=== PATIENT | male | born 1945 | race Caucasian/White ===

== ENCOUNTER 2018-02-20 11:23 | Inpatient (IN) | payer MEDICARE, OTHER ==
[2018-02-20 12:01] LABS: #Basophils 0.1 thou/uL (0.0-0.2); #Eosinphils 0.1 thou/uL (0.0-0.7); #Lymphocytes 1.4 thou/uL (1.20-3.40); #Monocytes 0.5 thou/uL (0.11-0.59); #Neutrophils 4.3 thou/uL (1.40-6.50); %Basophils 1.1 % (0.0-1.0); %Eosinophils 2.2 % (0.0-10.0); %Lymphocytes 22.2 % (21.0-51.0); %Monocytes 7.3 % (0.0-10.0); %Neutrophils 67.3 % (42.0-75.0); Hemoglobin 14.2 g/dL (14.0-18.0); Mean Corpuscular HGB CONC 33.6 g/dL (32.0-36.0); Mean Corpuscular Hemoglobin 30.8 pg (27.0-31.0); Mean Corpuscular Volume 91.6 fL (78.0-98.0); Mean Platelet Volume 6.8 fL (7.4-10.4); Platelet Count 206 thou/uL (130-400); Red Blood Cell (RBC) Count 4.61 mill/uL (4.70-6.10); White Blood Cell (WBC) Count 6.4 thou/uL (4.8-10.8)
--- NOTE | 2018-02-20 12:23 | RAD ---
CHEST ONE VIEW: Comparison: 02-09-16 History: Pain. FINDINGS: Normal cardiac silhouette. Lungs and pleural spaces are clear. No pneumothorax or osseous abnormaliti es. IMPRESSION: No acute pulmonary process. POS: [facility]
[2018-02-20 12:28] LABS: CKMB 1.9 ng/mL (0-6.6); Troponin I Less than 0.010 ng/mL (< 0.028)
[2018-02-20 12:31] LABS: ALT (SGPT) 15 U/L (8-55); AST (SGOT) 12 U/L (5-34); Albumin 4.3 g/dL (3.4-4.8); Alkaline Phosphatase 62 U/L (40-150); Anion Gap 14 mmol/L (10-20); BUN (Urea Nitrogen) 18 mg/dL (8.4-25.7); Bilirubin, Total 0.3 mg/dL (0.2-1.2); CK (CPK) 43 U/L (30-200); Calc. Creatinine Clearance 0 mL/min (70-130); Calcium 9.7 mg/dL (7.8-10.44); Carbon Dioxide 23 mmol/L (23-31); Chloride 104 mmol/L (98-107); Estimated GFR-MDRD 63; Globulin 2.9 g/dL (2.4-3.5); Glucose 98 mg/dL (83-110); Potassium 4.1 mmol/L (3.5-5.1); Protein, Total 7.2 g/dL (5.8-8.1); Sodium 137 mmol/L (136-145)
[2018-02-20] MEDS ORDERED: Dextrose 50% Abboject 50 ML SYRINGE SLOW IVP PRN (14:31)
[2018-02-20] MEDS ORDERED: Dextrose 5% in Water 1,000 ML IV PRN (14:31)
[2018-02-20] MEDS ORDERED: HumaLOG 300 UNITS/3 ML VIAL SC PRN ×2 (14:31)
[2018-02-20 15:47] LABS: Troponin I Less than 0.010 ng/mL (< 0.028)
[2018-02-20] MEDS ORDERED: Acetaminophen 325 MG TAB PO PRN (16:00)
[2018-02-20] MEDS ORDERED: Milk Of Magnesia 30 ML UDCUP PO PRN (16:00)
[2018-02-20] MEDS ORDERED: Albuterol Sulfate 2.5 mg/3 ml Neb NEB PRN (16:03)
[2018-02-20] MEDS: Sodium Chloride 0.9% 1,000 ML IV SCH (16:56)
[2018-02-20] MEDS: Dronedarone HCl 400 MG TAB PO SCH (16:57)
[2018-02-20 18:22] LABS: Troponin I Less than 0.010 ng/mL (< 0.028)
--- NOTE | 2018-02-20 19:30 | HP ---
PRIMARY CARE PHYSICIAN: Omaira Alcazar. PRESENTING COMPLAINT: Generalized weakness/fatigue. HISTORY OF PRESENT ILLNESS: Mr. William Avila is a 72-year-old male with a history of atrial fi brillation, status post ablation 2 years ago. He also has a history of type 2 diabetes mellitus, CAD , hypertension, and chronic respiratory issues, who presented to the emergency room with complaints o f generalized weakness which started about 4 days ago. He reports he was driving from [place] that period and he felt fine while driving, but anytime he will get out of the cath refill and he w ould feel lightheaded and reported some palpitations. These symptoms continued and decided to come t o the emergency room today. He denies chest pain, shortness of breath, PND, orthopnea, lower extremi ty edema. He had an ablation done 2 years ago and had been fine on Eliquis, Multaq and diltiazem. A t the emergency room, he was found to have elevated blood pressure and he went in and out of atrial f ibrillation with heart rate going to the 130s. He was started on IV fluids and was admitted for furt her management. PAST MEDICAL HISTORY: As stated in the HPI. PAST SURGICAL HISTORY: Shoulder surgery and the previous mention ablation. FAMILY HISTORY: Reviewed and noncontributory. SOCIAL HISTORY: He drinks one drink daily, but denies smoking cigarettes or use of illicit drugs. ALLERGIES: He reports allergy to an antibiotic, which he does not remember the name right now. HOME MEDICATIONS: Pending confirmation. The patient is on atorvastatin 40 mg at bedtime, Symbicort 2 puffs inhaled b.i.d., Plavix 75 mg daily, finasteride 5 mg daily, hydrochlorothiazide 12.5 mg daily , metformin 500 mg twice a day, montelukast 10 mg in p.m., multivitamin, prednisone 10 mg daily, tams ulosin 0.4 mg daily, apixaban 5 mg b.i.d., diltiazem 60 mg b.i.d., dronedarone 400 mg b.i.d. REVIEW OF SYSTEMS: All systems reviewed were negative except as stated in HPI. PHYSICAL EXAMINATION: VITAL SIGNS: Heart rate fluctuating between the 80s and 120s, blood pressure 154/95. Other vital si gns within normal limits and the patient is saturating well on room air. GENERAL: Not in acute distress. He is sitting in bed and seems comfortable. HEENT: Normocephalic, atraumatic. Not pale, anicteric. Dry mucous membranes. PERRLA, EOMI. NECK: Supple, full range of movement. No JVD. CARDIOVASCULAR: Irregular rhythm, but regular rate, S1 and S2 with no murmurs, rubs or gallops. ABDOMEN: Soft, nontender, nondistended. Bowel sounds normoactive. No hepatosplenomegaly. RESPIRATORY: Vesicular breath sounds bilaterally. No wheezes, rales or rhonchi. MUSCULOSKELETAL: No edema. SKIN: Warm, dry, well-perfused. No rashes or lesions. NEUROLOGIC: Alert and oriented to time, place and person. No focal deficit. PSYCHIATRIC: Normal mood and affect. LABORATORY DATA: Serum chemistry within normal limits. Troponin was trended and negative. TSH was 2.0229. CBC was also largely unremarkable. Chest x-ray showed a normal cardiac silhouette with lung s and pleural spaces clear. No pneumothorax or osseous abnormalities and no cardiopulmonary process seen acutely. EKG showed normal sinus rhythm, despite multiple attempts to capture the atrial fibril lation seen on the monitor. ASSESSMENT: 1. Atrial fibrillation with rapid ventricular response. Lightheadedness, ?orthostatic hypotension. 2. Type 2 diabetes mellitus, controlled. 3. Coronary artery disease. 4. Hypertension. PLAN: 1. The patient is admitted for dizziness and atrial fibrillation with rapid ventricular response tabatha pite previous ablation therapy 2 years ago. He will be admitted to the telemetry floor. 2. IV diltiazem p.r.n. for tachycardia. If he does not respond to this, we will be forced to start him on a diltiazem drip. 3. Continue home medications - diltiazem, Multaq and Eliquis. 4. Get orthostatic vital signs. We will continue gentle hydration in the meantime. 5. The patient may require an echocardiogram while in hospital. 6. He has requested to see Dr. Daniel who did his ablation 2 years ago. We will trend troponin and monitor vital signs closely. We will defer decision on whether to do a repeat echocardiogram, last o ne which was done 2 years ago and was a ANAND (likely prior to ablation). 7. We will resume all the home medications once they have been confirmed. 8. Deep venous thrombosis prophylaxis, on Eliquis. 9. Code status: FULL CODE.
[2018-02-20] MEDS: Diltiazem HCl SR 60 mg Capsule PO SCH (20:15)
[2018-02-20] MEDS: Docusate 100 MG CAP PO SCH (20:16)
[2018-02-20] MEDS: Apixaban 5 MG TAB PO SCH (20:16)
[2018-02-20] MEDS: Montelukast Sodium 10 mg Tablet PO SCH (20:48)
[2018-02-20] MEDS: Atorvastatin Calcium 40 MG TAB PO SCH (20:48)
[2018-02-20] MEDS: Carvedilol 25 MG TAB PO SCH (20:48)
[2018-02-20] MEDS: Lisinopril 5 MG TAB PO SCH (20:48)
[2018-02-20 23:22] LABS: Hemoglobin 13.2 g/dL (14.0-18.0); Platelet Count 175 thou/uL (130-400)
[2018-02-20 23:42] LABS: Calc. Creatinine Clearance 94 mL/min (70-130); Estimated GFR-MDRD 64
[2018-02-20 23:51] LABS: #Basophils 0.1 thou/uL (0.0-0.2); #Eosinphils 0.2 thou/uL (0.0-0.7); #Monocytes 0.5 thou/uL (0.11-0.59); #Neutrophils 3.9 thou/uL (1.40-6.50); %Basophils 0.9 % (0.0-1.0); %Eosinophils 2.4 % (0.0-10.0); %Lymphocytes 30.6 % (21.0-51.0); %Neutrophils 59.2 % (42.0-75.0); Mean Corpuscular HGB CONC 34.4 g/dL (32.0-36.0); Mean Corpuscular Hemoglobin 31.5 pg (27.0-31.0); Mean Corpuscular Volume 91.7 fL (78.0-98.0); Mean Platelet Volume 6.6 fL (7.4-10.4); RBC Distribution Width 11.9 % (11.5-14.5); Red Blood Cell (RBC) Count 4.17 mill/uL (4.70-6.10); White Blood Cell (WBC) Count 6.5 thou/uL (4.8-10.8)
[2018-02-21 00:09] LABS: Chloride 104 mmol/L (98-107)
[2018-02-21 00:10] LABS: Calcium 9.1 mg/dL (7.8-10.44); Glucose 146 mg/dL (83-110); Potassium 3.8 mmol/L (3.5-5.1); Sodium 139 mmol/L (136-145)
[2018-02-21 00:12] LABS: Anion Gap 15 mmol/L (10-20); Carbon Dioxide 24 mmol/L (23-31)
[2018-02-21 00:15] LABS: BUN (Urea Nitrogen) 17 mg/dL (8.4-25.7)
--- NOTE | 2018-02-21 06:10 | CON ---
DATE OF CONSULTATION: 02/21/2018 PRIMARY SUPERVISOR [employer]ODUCTS: Dr. Daniel HISTORY OF PRESENT ILLNESS: Mr. Avila is a very pleasant 72-year-old gentleman. He has history of paroxysmal atrial fibrillation and underwent successful catheter ablation for the fibrillation ab out 2 years ago in [place]. He was admitted to the hospital on this occasion with palpitations and ta chycardia and what looks like probably an atrial flutter or accelerated junctional rhythm was present at that time. He is currently asymptomatic and feeling well. He had no chest pain or pressure, jus t felt his heart racing. MEDICATIONS AT HOME: 1. Hydrochlorothiazide. 2. Atorvastatin. 3. Clopidogrel. 4. Aspirin. 5. He has been started on Eliquis here. 6. Metformin. ALLERGIES: None known. SOCIAL HISTORY: No alcohol or tobacco. PAST MEDICAL HISTORY: Positive for coronary artery disease as well as atrial arrhythmias. PHYSICAL EXAMINATION: GENERAL: This is a pleasant elderly gentleman in no distress. VITAL SIGNS: Blood pressure 150/80, pulse is now 90. Now it is regular with sinus. LUNGS: Clear. CARDIAC: Normal S1, normal S2. ABDOMEN: Soft, nontender. EXTREMITIES: Warm, dry, no clubbing or cyanosis. There is no edema. SKIN: Warm and dry. LABORATORY AND X-RAY FINDINGS: EKG reveals what looked like an atrial tachycardia earlier, also, queenie e sinus rhythm. ASSESSMENT: 1. Paroxysmal atrial arrhythmia. 2. Previous atrial fibrillation ablation. PLAN: He is on dronedarone as well as diltiazem, carvedilol as well as apixaban. Dr. Daniel will c heck with the patient tomorrow.
[2018-02-21] MEDS: Dronedarone HCl 400 MG TAB PO SCH ×2 (08:04→17:12)
[2018-02-21] MEDS: Diltiazem HCl SR 60 mg Capsule PO SCH ×2 (08:04→20:27)
[2018-02-21] MEDS: metFORMIN 500 MG TAB PO SCH ×2 (08:05→17:12)
[2018-02-21] MEDS: Finasteride 5 MG TAB PO SCH (08:14)
[2018-02-21] MEDS: Carvedilol 25 MG TAB PO SCH ×2 (08:14→20:27)
[2018-02-21] MEDS: Lisinopril 5 MG TAB PO SCH ×2 (08:15→20:27)
[2018-02-21] MEDS: Clopidogrel Bisulfate 75 MG TAB PO SCH (08:15)
[2018-02-21] MEDS: Docusate 100 MG CAP PO SCH ×2 (08:19→20:28)
[2018-02-21] MEDS: Apixaban 5 MG TAB PO SCH ×2 (08:19→20:28)
--- NOTE | 2018-02-21 11:01 | PDOC.PN ---
- Subjective Encounter Start Date: 02/21/18 Encounter Start Time: 11:01 72 M with a h/o A fib s/p ablation presenting with paroxysmal atrial arrhythmias. No acute events on tele and no complaints. today. - Objective MAR Reviewed: Yes Vital Signs & Weight: Vital Signs (12 hours) Temp Pulse Resp BP BP Pulse Ox 02/21/18 08:48 97.9 F 78 18 02/21/18 08:23 97.9 F 78 18 123/71 94 L 02/21/18 04:00 98.0 F 71 20 111/66 94 L 02/20/18 23:47 73 20 124/75 Weight Weight 240 lb 8 oz I&O: 02/20/18 02/21/18 02/22/18 06:59 06:59 06:59 Intake Total 680 Output Total 1425 Balance -745 Result Diagrams: 02/20/18 23:05 02/20/18 23:05 Additional Labs: Accuchecks 02/21/18 02/20/18 02/20/18 06:14 20:25 17:03 POC Glucose 128 H 137 H 117 H Phys Exam - Physical Examination Constitutional: NAD HEENT: moist MMs, sclera anicteric Neck: supple, full ROM Respiratory: no wheezing, no rales, no rhonchi, clear to auscultation bilateral Cardiovascular: RRR, no significant murmur, no rub Gastrointestinal: soft, non-tender, no distention, positive bowel sounds Musculoskeletal: no edema, pulses present Neurological: non-focal, moves all 4 limbs Psychiatric: normal affect, A&O x 3 Skin: no rash, normal turgor Dx/Plan (1) Paroxysmal atrial fibrillation Code(s): I48.0 - PAROXYSMAL ATRIAL FIBRILLATION Status: Chronic Comment: Rate control and in sinus rhythm for now. Cardiology on board. Continue current medications. (2) HTN (hypertension) Code(s): I10 - ESSENTIAL (PRIMARY) HYPERTENSION Status: Chronic Qualifiers: Hypertension type: essential hypertension Qualified Code(s): I10 - Essential (primary) hypertension (3) DM2 (diabetes mellitus, type 2) Status: Acute Qualifiers: Diabetes mellitus correction insulin use: without oil heaterman use Diabetes mellitus complication status: without complication Qualified Code(s): E11.9 - Type 2 diabetes mellitus without complications Comment: Well controlled. Continue metformin, SSI. (4) CAD (coronary artery disease) Code(s): I25.10 - ATHSCL HEART DISEASE OF [place] CORONARY ARTERY W/O ANG PCTRS Status: Chronic Qualifiers: Coronary Disease-Associated Artery/Lesion type: unspecified vessel or lesion type [place] vs. transplanted heart: [place] heart Associated angina: without angina Qualified Code(s): I25.10 - Atherosclerotic heart disease of [place] coronary artery without angina pectoris Comment: Stable. Chest pain free. (5) Dizziness Code(s): R42 - DIZZINESS AND GIDDINESS Status: Resolved - Plan cont current plan of care, plan discussed w/ family, out of bed/ambulate Dizziness resolved. ? orthostatic vs due to A fib. Patient reports not tolerating Eliquis- GI upset. Dr Daniel to see today. Will F/u Cardiology recs Continue current therapy. Review of Systems - Medications/Allergies Allergies/Adverse Reactions: Allergies Allergy/AdvReac Type Severity Reaction Status Date / Time No Known Allergies Allergy Verified 02/20/18 16:19 Medications: Current Medications Acetaminophen (Tylenol) 650 mg PO Q4H PRN PRN Reason: Headache/Fever or Pain Albuterol Sulfate (Ventolin) 2.5 mg NEB [id number] PRN PRN Reason: Wheezing Apixaban (Eliquis) 5 mg PO BID [facility] Last Admin: 02/21/18 08:19 Dose: Not Given Arformoterol Tartrate (Brovana) 15 mcg NEB BID-RT [facility] Aspirin (Aspirin Chewable) 81 mg PO DAILY [facility] Last Admin: 02/21/18 08:55 Dose: 81 mg Atorvastatin Calcium (Lipitor) 40 mg PO HS [facility] Last Admin: 02/20/18 20:48 Dose: Not Given Carvedilol (Coreg) 12.5 mg PO BID [facility] Last Admin: 02/21/18 08:14 Dose: 12.5 mg Clopidogrel Bisulfate (Plavix) 75 mg PO DAILY [facility] Last Admin: 02/21/18 08:15 Dose: 75 mg Dextrose/Water (Dextrose 50%) 25 gm SLOW IVP PRN PRN PRN Reason: Hypoglycemia Diltiazem HCl (Cardizem) 10 mg SLOW IVP Q3H PRN PRN Reason: To Control Heart Rate Diltiazem HCl (Cardizem Sr) 60 mg PO BID [facility] Last Admin: 02/21/18 08:04 Dose: 60 mg Docusate Sodium (Colace) 100 mg PO BID [facility] Last Admin: 02/21/18 08:19 Dose: Not Given [facility] Last Admin: 02/21/18 08:04 Dose: 400 mg Finasteride (Proscar) 5 mg PO DAILY [facility] Last Admin: 02/21/18 08:14 Dose: 5 mg Glucagon (Glucagon) 1 mg IM PRN PRN PRN Reason: Hypoglycemia Dextrose/Water (D5w) 1,000 mls @ 0 mls/hr IV .Q0M PRN; As Directed PRN Reason: Hypoglycemia Sodium Chloride (Normal Saline 0.9%) 1,000 mls @ 50 mls/hr IV .Q20H [facility] Last Admin: 02/20/18 16:56 Dose: 1,000 mls Insulin Human Lispro (Humalog) 0 units SC .MILD SLIDING SCALE PRN PRN Reason: Mild Correctional Scale Insulin Human Lispro (Humalog) 0 units SC .BEDTIME SLIDING SC PRN PRN Reason: Bedtime Correctional Scale Lisinopril (Zestril) 5 mg PO BID [facility] Last Admin: 02/21/18 08:15 Dose: 5 mg Magnesium Hydroxide (Milk Of Magnesium) 30 ml PO DAILYPRN PRN PRN Reason: Constipation Metformin [facility] ([facility]) [facility] Last Admin: 02/21/18 08:05 Dose: 1,000 mg Montelukast Sodium (Singulair) 10 mg PO QPM [facility] Last Admin: 02/20/18 20:48 Dose: Not Given Sodium Chloride (Flush - Normal Saline) 10 ml IVF Q12HR [facility] Last Admin: 02/21/18 08:56 Dose: 10 ml Sodium Chloride (Flush - Normal Saline) 10 ml IVF PRN PRN PRN Reason: Saline Flush Tamsulosin HCl (Flomax) 0.4 mg PO [facility]
[2018-02-21] MEDS: Sodium Chloride 0.9% 1,000 ML IV SCH (12:16)
[2018-02-21 14:42] VITALS: BMI 29.2
--- NOTE | 2018-02-21 16:51 | PDOC.CTH ---
Cardiology Progress Note - Subjective He is doing well. He still has paroxysms of SVT. He feels better overall. - Objective Vital Signs Temp Pulse Resp BP Pulse Ox 02/21/18 15:30 98.7 F 74 16 115/67 96 02/21/18 11:33 97.8 F 71 18 116/70 96 02/21/18 08:48 97.9 F 78 18 02/21/18 08:23 97.9 F 78 18 123/71 94 L Admit Weight 240 lb Weight 240 lb 8 oz 02/20/18 02/21/18 02/22/18 06:59 06:59 06:59 Intake Total 680 Output Total 1425 Balance -745 - Physical Examination General/Neuro: alert & oriented x3, NAD Neck: no JVD present Lungs: CTA, unlabored respirations Heart: RRR Abdomen: NT/ND Extremities: other: (no edema.) - Telemetry Telemetry Rhythm: NSR - Labs Result Diagrams: 02/20/18 23:05 02/20/18 23:05 Troponin/CKMB CK-MB (CK-2) 1.9 ng/mL (0-6.6) 02/20/18 11:49 Troponin I Less than 0.010 ng/mL (< 0.028) 02/20/18 17:08 - Assessment/Plan 1. Atrial tach 2. Hx of afib s/p ablation 3. CAD, stable s/sp PCI to IR in 2014. PLAN: - Will consult EP as he may be a candidate for an ablation, This is either Aflutter with 2-1 block, atypical versus atrial tach. - If aflutter then full anticoagulation is recommended. If atrial tach which is favoured then no anticoagulation needed. - Awaiting EP recs.
[2018-02-21] MEDS: Arformoterol 15 MCG/2 ML NEB NEB SCH (18:33)
[2018-02-21] MEDS: Montelukast Sodium 10 mg Tablet PO SCH (20:25)
[2018-02-21] MEDS: Atorvastatin Calcium 40 MG TAB PO SCH (20:27)
[2018-02-21] MEDS ORDERED: Tamsulosin HCl 0.4 MG CAP PO SCH (21:00)
--- NOTE | 2018-02-22 00:14 | CON ---
DATE OF CONSULTATION: 02/21/2018 ELECTROPHYSIOLOGY CONSULTATION REFERRING PHYSICIAN: Adelso Daniel MD REASON FOR CONSULTATION: Atrial arrhythmia with RVR. HISTORY OF PRESENT ILLNESS: Mr. Avila is a pleasant 72-year-old man with a history of paroxysma l atrial arrhythmias. He has undergone 2 prior ablations, most recently in [place] in 2015. Since th at time, his arrhythmias have been well controlled with just occasional palpitations. He was recentl y traveling to [place] for a class reunion when he began to experience some vague symptoms of fatigu e and low energy with associated dizziness. While he was driving home, he began to attributed to pos sible recurrence of arrhythmias and once he arrived home, he decided it was time to go to the emergen cy room. He did not have any syncopal or near syncopal episodes, but he did have significant unstead iness, where he felt he needed to support himself while he was trying to walk. He also endorses sign ificant fatigue with these episodes that are fairly intermittent. He presented to the hospital in at [facility] and since that time, has been paroxysmal with what looks like a focal atrial tachyca rdia with 1:1 conduction. REVIEW OF SYSTEMS: Twelve-point review of systems was conducted, and is negative except that listed above in the HPI. PAST MEDICAL HISTORY: 1. Wide-complex tachycardia, status post ablation by Dr. Hammonds on 07/22/2015, at which point, he was found to have an atrial tachycardia. 2. Atrial tachycardia, status post ablation by Dr. Joe on 10/27/2015 with only occasional palpi tations since that time. 3. Inclusion of a LINQ loop recorder placement in 2014. 4. Intolerance to Eliquis related to undesirable side effects, but no significant bleeding issues. 5. Diabetes. 6. Hypertension. 7. CHADS-VASc score of 3 on the basis of age, hypertension, and diabetes. FAMILY HISTORY: Negative for sudden cardiac or early-onset coronary artery disease. SOCIAL HISTORY: Negative for tobacco habituation, but positive for occasional alcohol use. Negative for illicit drug use. ALLERGIES: No known allergies. HOME MEDICATIONS: Hydrochlorothiazide, atorvastatin, clopidogrel, aspirin, metformin. PHYSICAL EXAMINATION: VITAL SIGNS: Most recent vital signs 98.7 degrees Fahrenheit, pulse 74, respirations 16, oxygen satu ration 96% on room air, blood pressure 115/67. GENERAL: This is a well-appearing, well-groomed male in no apparent distress. He is alert and orien delmi. Speech is clear. His affect is appropriate. NECK: Supple without jugular venous distention. His thyroid is nonpalpable. LUNGS: Clear to auscultation bilaterally without wheezes, crackles, or rhonchi. His respirations ar e even and unlabored with good bilateral excursion. HEART: His heart rate is currently irregularly irregular without significant murmur, rub, or gallop. His PMI is nondisplaced. EXTREMITIES: Warm and dry to touch without clubbing, cyanosis, or edema. ABDOMEN: Soft and nontender without palpable masses and hepatojugular reflex is negative. There are positive bowel tones noted throughout. NEUROLOGIC: Grossly intact and nonfocal and his gait is stable. DATABASE: Review of EKGs and telemetry strips were all personally reviewed revealing paroxysmal epis odes of 1:1 atrial tachycardia and occasionally organizing in a 2:1 flutter. Otherwise, maintaining sinus rhythm. LABORATORY DATA: Hematology was reviewed and is unremarkable except some mild anemia. Chemistry: P otassium 3.8, creatinine 1.13. TSH was 2.02 on the . Chest x-ray on 02/20/2018, no acute pulmon josé processes. IMPRESSION: 1. Paroxysmal atrial tachycardia with decreased burden since initiation of Multaq. 2. History of atrial fibrillation/atrial tachycardia, status post ablation in 10/2015, initially fou nd during an ablation for a wide-complex tachycardia with Dr. Hammonds. 3. Near-syncope. 4. LINQ loop recorder in situ. 5. Diabetes and hypertension. 6. CHADS-VASc score of 3 on the basis of hypertension, diabetes, and advancing age. PLAN: 1. Continue Multaq 400 mg p.o. b.i.d. for arrhythmia management, which at this point seems to be dec reasing the number of episodes that he is having. 2. Consider Xarelto for oral anticoagulation. We discussed the importance of stroke prophylaxis in the setting of paroxysmal atrial arrhythmias. We understand he has not tolerated Eliquis in the past due to side effects, but has not had any history of potential bleeding issues while on oral anticoag ulation. He does not feel that he has ever tried any alternative agents and Xarelto may be a possibi lity for him. 3. We will schedule for an outpatient ablation tentatively at this point. He is eager to be rid of these episodes; however, if Multaq is effectively suppressing his arrhythmias, then he may opt for po stponing ablation until the time where his arrhythmias are refractory to the medical management. Thank you for allowing us to participate in the care of this patient. This report is dictated as scribe for Dr. Chato Burk.
[2018-02-22] MEDS: Arformoterol 15 MCG/2 ML NEB NEB SCH (07:15)
[2018-02-22] MEDS: Lisinopril 5 MG TAB PO SCH (07:51)
[2018-02-22] MEDS: Dronedarone HCl 400 MG TAB PO SCH (07:51)
[2018-02-22] MEDS: metFORMIN 500 MG TAB PO SCH (07:51)
[2018-02-22] MEDS: Clopidogrel Bisulfate 75 MG TAB PO SCH (07:52)
[2018-02-22] MEDS: Docusate 100 MG CAP PO SCH (07:52)
[2018-02-22] MEDS: Diltiazem HCl SR 60 mg Capsule PO SCH (07:52)
[2018-02-22] MEDS: Finasteride 5 MG TAB PO SCH (07:52)
[2018-02-22] MEDS: Carvedilol 25 MG TAB PO SCH (07:52)
[2018-02-22] MEDS: Apixaban 5 MG TAB PO SCH (07:53)
[2018-02-22] MEDS ORDERED: Rivaroxaban 15 MG TAB PO SCH (09:00)
[2018-02-22 11:44] VITALS: BP 129/83; TEMP 98
--- NOTE | 2018-02-22 12:54 | PDOC.PN ---
- Subjective Encounter Start Date: 02/22/18 Encounter Start Time: 12:53 72 M with a h/o A fib s/p ablation presenting with paroxysmal atrial arrhythmias. No acute events on tele and no complaints. Reviewed by cardiology and EP. Will likely schedule ablation on outpatient basis. Cardiology recommended changing to Xarelto since patient not tolerating Eliquis. No acute events overnight. - Objective MAR Reviewed: Yes Vital Signs & Weight: Vital Signs (12 hours) Temp Pulse Resp BP BP Pulse Ox 02/22/18 11:43 98.0 F 108 H 18 129/83 95 02/22/18 07:56 97.5 F L 108 H 18 128/75 95 02/22/18 07:51 108 H 128/75 02/22/18 07:15 71 16 95 02/22/18 04:00 97.7 F 82 20 100/55 L 96 Weight Admit Weight 240 lb Weight 240 lb 8 oz I&O: 02/21/18 02/22/18 02/23/18 06:59 06:59 06:59 Intake Total 680 1434 Output Total 1425 1500 Balance -745 -66 Result Diagrams: 02/20/18 23:05 02/20/18 23:05 Additional Labs: Accuchecks 02/22/18 02/22/18 02/21/18 10:35 05:39 20:53 POC Glucose 118 H 143 H 106 02/21/18 02/21/18 16:45 10:35 POC Glucose 132 H 151 H Phys Exam - Physical Examination Constitutional: NAD HEENT: moist MMs, sclera anicteric Neck: supple, full ROM Respiratory: no wheezing, no rales, no rhonchi, clear to auscultation bilateral Cardiovascular: RRR, no significant murmur, no rub Gastrointestinal: soft, non-tender, no distention, positive bowel sounds Musculoskeletal: no edema, pulses present Neurological: non-focal, moves all 4 limbs Psychiatric: normal affect, A&O x 3 Skin: no rash, normal turgor Dx/Plan (1) Paroxysmal atrial fibrillation Code(s): I48.0 - PAROXYSMAL ATRIAL FIBRILLATION Status: Chronic Comment: Rate controlled. Cardiology on board. (2) HTN (hypertension) Code(s): I10 - ESSENTIAL (PRIMARY) HYPERTENSION Status: Chronic Qualifiers: Hypertension type: essential hypertension Qualified Code(s): I10 - Essential (primary) hypertension Comment: Fairly well controlled. (3) DM2 (diabetes mellitus, type 2) Status: Chronic Qualifiers: Diabetes mellitus fpc insulin use: without fpc use Diabetes mellitus complication status: without complication Qualified Code(s): E11.9 - Type 2 diabetes mellitus without complications Comment: Well controlled. Continue metformin, SSI. (4) CAD (coronary artery disease) Code(s): I25.10 - ATHSCL HEART DISEASE OF [place] CORONARY ARTERY W/O ANG PCTRS Status: Chronic Qualifiers: Coronary Disease-Associated Artery/Lesion type: unspecified vessel or lesion type [place] vs. transplanted heart: [place] heart Associated angina: without angina Qualified Code(s): I25.10 - Atherosclerotic heart disease of [place] coronary artery without angina pectoris Comment: Stable. Chest pain free. - Plan cont current plan of care, out of bed/ambulate * . Review of Systems - Medications/Allergies Allergies/Adverse Reactions: Allergies Allergy/AdvReac Type Severity Reaction Status Date / Time No Known Allergies Allergy Verified 02/20/18 16:19 Medications: Current Medications Acetaminophen (Tylenol) 650 mg PO Q4H PRN PRN Reason: Headache/Fever or Pain Albuterol Sulfate (Ventolin) 2.5 mg NEB [id number] PRN PRN Reason: Wheezing Arformoterol Tartrate (Brovana) 15 mcg NEB BID-RT [facility] Last Admin: 02/22/18 07:15 Dose: 15 mcg Aspirin (Aspirin Chewable) 81 mg PO DAILY [facility] Last Admin: 02/22/18 07:52 Dose: 81 mg Atorvastatin Calcium (Lipitor) 40 mg PO HS [facility] Last Admin: 02/21/18 20:27 Dose: 40 mg Carvedilol (Coreg) 12.5 mg PO BID [facility] Last Admin: 02/22/18 07:52 Dose: 12.5 mg Clopidogrel Bisulfate (Plavix) 75 mg PO DAILY [facility] Last Admin: 02/22/18 07:52 Dose: 75 mg Dextrose/Water (Dextrose 50%) 25 gm SLOW IVP PRN PRN PRN Reason: Hypoglycemia Diltiazem HCl (Cardizem) 10 mg SLOW IVP Q3H PRN PRN Reason: To Control Heart Rate Diltiazem HCl (Cardizem Sr) 60 mg PO BID [facility] Last Admin: 06/28/18 07:52 Dose: 60 mg Docusate Sodium (Colace) 100 mg PO BID [facility] Last Admin: 02/22/18 07:52 Dose: 100 mg [facility] Last Admin: 02/22/18 07:51 Dose: 400 mg Finasteride (Proscar) 5 mg PO DAILY [facility] Last Admin: 02/22/18 07:52 Dose: 5 mg Glucagon (Glucagon) 1 mg IM PRN PRN PRN Reason: Hypoglycemia Dextrose/Water (D5w) 1,000 mls @ 0 mls/hr IV .Q0M PRN; As Directed PRN Reason: Hypoglycemia Insulin Human Lispro (Humalog) 0 units SC .MILD SLIDING SCALE PRN PRN Reason: Mild Correctional Scale Insulin Human Lispro (Humalog) 0 units SC .BEDTIME SLIDING SC PRN PRN Reason: Bedtime Correctional Scale Lisinopril (Zestril) 5 mg PO BID [facility] Last Admin: 02/22/18 07:51 Dose: 5 mg Magnesium Hydroxide (Milk Of Magnesium) 30 ml PO DAILYPRN PRN PRN Reason: Constipation Metformin HCl (Glucophage) 1,000 mg PO BID[facility] Last Admin: 02/22/18 07:51 Dose: 1,000 mg Montelukast Sodium (Singulair) 10 mg PO QPM [facility] Last Admin: 02/21/18 20:25 Dose: 10 mg Rivaroxaban (Xarelto) 15 mg PO BID [facility] Sodium Chloride (Flush - Normal Saline) 10 ml IVF Q12HR [facility] Last Admin: 02/22/18 07:53 Dose: 10 ml Sodium Chloride (Flush - Normal Saline) 10 ml IVF PRN PRN PRN Reason: Saline Flush Tamsulosin HCl (Flomax) 0.4 mg PO HS [facility] Last Admin: 02/21/18 20:27 Dose: 0.4 mg
--- NOTE | 2018-02-22 14:34 | PDOC.CTH ---
<Jeanna Joseph - Last Filed: 02/22/18 14:33> Cardiology Progress Note - Subjective EP progress note: patient seen and evaluated. no new cardiac concerns or complaints. Continues to have occasional episodes of associated with arrhythmia. ILR was checked today. Multaq started yesterday, tolerating well so far. Refusing Eliquis. Walking in the halls independently. - Objective Vital Signs Temp Pulse Resp BP BP Pulse Ox 02/22/18 11:43 98.0 F 108 H 18 129/83 95 02/22/18 07:56 97.5 F L 108 H 18 128/75 95 02/22/18 07:51 108 H 128/75 02/22/18 07:15 71 16 95 02/22/18 04:00 97.7 F 82 20 100/55 L 96 Admit Weight 240 lb Weight 240 lb 8 oz 02/21/18 02/22/18 02/23/18 06:59 06:59 06:59 Intake Total 680 1434 Output Total 1425 1500 Balance -745 -66 - Physical Examination General/Neuro: alert & oriented x3, NAD Neck: no JVD present Lungs: CTA, unlabored respirations Heart: other: (Atrial tachycardia, VR~100) - Telemetry Telemetry Rhythm: Atrial tach VR~100 - Labs Result Diagrams: 02/20/18 23:05 02/20/18 23:05 Troponin/CKMB CK-MB (CK-2) 1.9 ng/mL (0-6.6) 02/20/18 11:49 Troponin I Less than 0.010 ng/mL (< 0.028) 02/20/18 17:08 - Assessment/Plan 1. Recurrent atrial tachycardia s/p PVI in 2016. Symptomatic. Started on multaq , tolerating well. Rates better controlled. 2. Linq ILR interrogated. Occasional episodes recorded however, most of his events are likely occurring below the set parameters (>/=150 bpm, >/= 16 beats duration). Does show substantial increase in heart rate variability over the past 6 months and particularly in the past 2 weeks. 3. CHADS-VASc: 3 (age, HTN, DM)- starting xarelto, continue upon DC Ok for DC by EP We will be making outpatient arrangements for OP redo PVI. Continue AAD mostly for symptom control until arrangements can be made. He will hold Multaq 5 days before his procedure. <Chato Burk - Last Filed: 02/22/18 15:11> Cardiology Progress Note - Objective Vital Signs Temp Pulse Resp BP BP Pulse Ox 02/22/18 11:43 98.0 F 108 H 18 129/83 95 02/22/18 07:56 97.5 F L 108 H 18 128/75 95 02/22/18 07:51 108 H 128/75 02/22/18 07:15 71 16 95 02/22/18 04:00 97.7 F 82 20 100/55 L 96 Admit Weight 240 lb Weight 240 lb 8 oz 02/21/18 02/22/18 02/23/18 06:59 06:59 06:59 Intake Total 680 1434 Output Total 1425 1500 Balance -745 -66 - Labs Result Diagrams: 02/20/18 23:05 02/20/18 23:05 Troponin/CKMB CK-MB (CK-2) 1.9 ng/mL (0-6.6) 02/20/18 11:49 Troponin I Less than 0.010 ng/mL (< 0.028) 02/20/18 17:08 Attending Addendum - Attending Addendum Date/Time: 02/22/18 1511 I personally evaluated the patient and discussed the management with Mrs Joseph. I agree with the History, Examination, Assessment and Plan documented above with any addition or exceptions noted below.
--- NOTE | 2018-02-22 16:27 | DIS ---
DATE OF ADMISSION: 02/20/2018 DATE OF DISCHARGE: 02/22/2018 DISCHARGE DIAGNOSES: Paroxysmal atrial arrhythmia, atrial fibrillation, type 2 diabetes mellitus, co ronary artery disease, hypertension. HISTORY OF PRESENT ILLNESS AND HOSPITAL COURSE: Mr. William Avila is a 72-year-old male with a history of atrial fibrillation status post ablation 2 years ago, diabetes mellitus, CAD, hypertension and chronic respiratory issues who presented to the emergency room with generalized weakness and diz ziness, which started about 4 days before presenting. Dizziness was on getting up from a supine posi tion or from a sitting position. He denied chest pain, shortness of breath, PND, orthopnea, lower ex tremity edema. He had an ablation done 2 years ago and had been doing well on Eliquis, Multaq and di ltiazem, but reports that he is unable to tolerate Eliquis and I think it is gastrointestinal upset w hile on that medication. At the emergency room, he was found to have elevated blood pressure and int ermittent atrial fibrillation with heart rate going to a maximum of about 130s. He was started on IV fluids and admitted for further management. He did not require AV gianfranco blocking medications. Whil e in the hospital, he had intermittent episodes of atrial fibrillation and was controlled. He was ev aluated by Cardiology with an assessment of paroxysmal atrial arrhythmia. He was also evaluated by Alan Aldridge and Dr. Daniel who only switched him from Eliquis to Xarelto as the patient was unable to tole rate Eliquis. As per inside sales supervisor, no ablation therapy is planned for now since the patient h as been doing very well on his Multaq and calcium channel timmy. No acute events were noted on tel emetry. He is to follow up with them in clinic on an outpatient basis for possible ablation. DISCHARGE MEDICATIONS: Xarelto 15 g twice a day for 3 weeks after which he switches to 20 mg daily, Brovana 15 mcg nebulizer b.i.d., aspirin 81 mg daily, atorvastatin 40 mg at bedtime, carvedilol 12.5 mg b.i.d., Plavix 75 mg daily, Diltiazem SR 60 mg b.i.d., dronedarone 400 mg b.i.d. with meals, finas teride 5 mg daily, glimepiride 1 mg daily, Hydrochlorothiazide 25 mg daily, lisinopril 5 mg b.i.d., m etformin 1000 mg b.i.d., montelukast sodium 10 mg q.p.m., multivitamin 1 tablet p.o. q.2 days, rivaro xaban as stated above, tamsulosin 0.4 mg at bedtime. PHYSICAL EXAMINATION: He was examined on the day of discharge. For details, see today's progress no giselle. LABORATORY DATA: WBC 6.5, hemoglobin 13.2, platelet count 175. Sodium 139, potassium 3.8, chloride 104, carbon dioxide 24, anion gap 15, BUN 17, creatinine 1.13, glucose 146, calcium 9.1. IMAGING: Chest x-ray, EKG. CONSULTS: Cardiology and Electrophysiology. CONDITION AT DISCHARGE: Stable and improved. PROCEDURES: None. DIET: Diabetic, heart healthy, low salt. CARE GOALS: To follow up with EP on outpatient basis, also to follow up with primary care physician within 1 week of discharge. ACTIVITY: To resume as tolerated. Discharge time 65 minutes including chart review and documentation.
--- NOTE | 2018-02-22 18:54 | PDOC.CTH ---
Cardiology Progress Note - Subjective He is doing well. He has been walking around without issues. - Objective Vital Signs Temp Pulse Resp BP BP Pulse Ox 02/22/18 11:43 98.0 F 108 H 18 129/83 95 02/22/18 07:56 97.5 F L 108 H 18 128/75 95 02/22/18 07:51 108 H 128/75 02/22/18 07:15 71 16 95 Admit Weight 240 lb Weight 240 lb 8 oz 02/21/18 02/22/18 02/23/18 06:59 06:59 06:59 Intake Total 680 1434 Output Total 1425 1500 Balance -745 -66 - Physical Examination General/Neuro: alert & oriented x3, NAD Neck: no JVD present Lungs: CTA, unlabored respirations Heart: RRR Abdomen: NT/ND Extremities: other: (no edema) - Telemetry Telemetry Rhythm: NSR, Atach - Labs Result Diagrams: 02/20/18 23:05 02/20/18 23:05 Troponin/CKMB CK-MB (CK-2) 1.9 ng/mL (0-6.6) 02/20/18 11:49 Troponin I Less than 0.010 ng/mL (< 0.028) 02/20/18 17:08 - Assessment/Plan 1. Atrial tach 2. Hx of afib s/p ablation 3. CAD, stable s/sp PCI to IR in 2014. PLAN: - Continue Multaq for now for suppression of Atrial tachycardia. - Start Xarelto. - Continue Diltiazem. - Plan is to schedule ablation as an outpatient. - He will follow up with EP in one month and with me as previously scheduled
== END 2018-02-22 16:29 | disposition home or self-care (01) | DRG 309 ==
LOC: ERS 11:23 → 2NO 16:03
PROVIDERS: ADMIT Internal Medicine; ATTEND Internal Medicine
DX: I48.0 Paroxysmal atrial fibrillation (principal); J96.10 Chronic respiratory failure, unspecified whether with hypoxia or hypercapnia; I47.1 Supraventricular tachycardia; I10 Essential (primary) hypertension; E11.9 Type 2 diabetes mellitus without complications; I25.10 Atherosclerotic heart disease of native coronary artery without angina pectoris; Z95.5 Presence of coronary angioplasty implant and graft; Z79.82 Long term (current) use of aspirin; E78.5 Hyperlipidemia, unspecified; Z79.01 Long term (current) use of anticoagulants
CPT/HCPCS: 36415; 36416; 71045; 80053; 82550; 82553; 84443; 84484; 85025; 93005; 94640; A4216

== ENCOUNTER 2019-01-15 08:43 | Outpatient (CLI) | payer MEDICARE, OTHER ==
--- NOTE | 2019-01-15 09:30 | ULT ---
Sonogram abdomen complete HISTORY: Upper abdomen pain. FINDINGS: Gallbladder has a normal appearance. Echogenic fold is noted along the posterior gallbladde r neck. Common duct is not well visualized. No biliary dilatation is evident. Liver is diffusely echogenic without focal mass or intrahepatic biliary dilatation. A 1.2 cm parapelvic cyst of the righ t kidney is evident. The spleen, left kidney, and visualized portions of the abdominal aorta, IVC, and pancreas have a normal appearance. IMPRESSION: No evidence of gallstones or biliary obstruction. Hepatic steatosis. Small right renal cyst.
== END 2019-01-15 08:44 | disposition home or self-care (01) ==
LOC: SCSULT 08:43
PROVIDERS: ATTEND Physician Assistant
DX: R10.9 Unspecified abdominal pain (principal); R19.5 Other fecal abnormalities
CPT/HCPCS: 76700

== ENCOUNTER 2020-07-27 13:53 | Outpatient (CLI) | payer MEDICARE, OTHER ==
--- NOTE | 2020-07-27 15:00 | CT ---
Exam: Lumbar spine CT without contrast HISTORY: Low back pain times several years. FINDINGS: 5 lumbar type vertebra. Lumbar spine vertebral body height is maintained. No fracture. No spondylolis thesis or spondylolysis. Atherosclerosis of a nonaneurysmal aorta. Visualized alimentary canal is unremarkable. Visualized solid organs do not demonstrate any acute abnormality. Appropriate attenuation of the paraspinal muscles. T12-L1: No significant central canal stenosis or significant neural foraminal narrowing. L1-L2: Vacuum disc phenomenon. Broad-based disc bulge. Mild central canal stenosis. Mild to moderate bilateral neural foraminal narrowing. L2-L3: Broad-based disc bulge, ligamentum flavum thickening and facet hypertrophy result in mild cent ral canal stenosis. Mild to moderate bilateral neural foraminal narrowing. L3-L4: Broad-based disc bulge, ligamentum flavum thickening and facet hypertrophy. Mild central canal stenosis. Mild bilateral neural foraminal narrowing. L4-L5: Broad-based disc bulge, ligamentum flavum thickening and facet hypertrophy result in mild to m oderate central canal stenosis. There is bilateral facet hypertrophy with vacuum joint phenomenon. Mild right and [id number] left neural foraminal narrowing. L5-S1: Vacuum disc phenomenon. There is a broad-based disc bulge with a left and right subarticular h erniation. There is contact and partial obscuration of the traversing right S1 nerve root. Partial obscuration of the traversing left S1 nerve root. There is bilateral facet hypertrophy with vacuum acndace int phenomenon in the right facet joint. Mild to moderate right and mild left neural foraminal narrowing. Visualized sacrum is intact. Partial fusion of the left and right SI joint. IMPRESSION: 1. No fracture. 2. Multilevel degenerative changes of lumbar spine as described above. Transcribed Date/Time: 07/27/2020 4:15 PM
== END 2020-07-27 13:54 | disposition home or self-care (01) ==
LOC: BICCT 13:53
PROVIDERS: ATTEND Neurological Surgery
DX: M54.5 Low back pain (principal); M47.816 Spondylosis without myelopathy or radiculopathy, lumbar region; M47.817 Spondylosis without myelopathy or radiculopathy, lumbosacral region
CPT/HCPCS: 72131

== ENCOUNTER 2021-03-02 16:38 | Inpatient (IN) | payer MEDICARE, OTHER ==
[2021-03-02 18:58] LABS: #Basophils 0.1 thou/uL (0.0-0.2); #Eosinphils 0.3 thou/uL (0.0-0.7); #Lymphocytes 1.7 thou/uL (1.20-3.40); #Monocytes 0.7 thou/uL (0.11-0.59); #Neutrophils 5.8 thou/uL (1.40-6.50); %Basophils 0.6 % (0.0-1.0); %Eosinophils 3.1 % (0.0-10.0); %Lymphocytes 20.1 % (21.0-51.0); %Neutrophils 68.2 % (42.0-75.0); Hemoglobin 15.2 g/dL (14.0-18.0); Mean Corpuscular HGB CONC 34.4 g/dL (32.0-36.0); Mean Corpuscular Hemoglobin 32.5 pg (27.0-31.0); Mean Corpuscular Volume 94.6 fL (78.0-98.0); Mean Platelet Volume 7.7 fL (7.4-10.4); Platelet Count 210 thou/uL (130-400); RBC Distribution Width 11.9 % (11.5-14.5); Red Blood Cell (RBC) Count 4.69 mill/uL (4.70-6.10); White Blood Cell (WBC) Count 8.5 thou/uL (4.8-10.8)
[2021-03-02 19:19] LABS: ALT (SGPT) 20 U/L (8-55); AST (SGOT) 17 U/L (5-34); Albumin 4.2 g/dL (3.4-4.8); Alkaline Phosphatase 64 U/L (40-110); Anion Gap 17 mmol/L (10-20); BUN (Urea Nitrogen) 19 mg/dL (8.4-25.7); Bilirubin, Total 0.3 mg/dL (0.2-1.2); Calc. Creatinine Clearance 0 mL/min (70-130); Carbon Dioxide 25 mmol/L (23-31); Chloride 100 mmol/L (98-107); Globulin 3.1 g/dL (2.4-3.5); Glucose 152 mg/dL (83-110); Potassium 4.3 mmol/L (3.5-5.1); Protein, Total 7.3 g/dL (5.8-8.1); Sodium 138 mmol/L (136-145)
[2021-03-02] MEDS ORDERED: Piperacillin/Tazobactam 3.375 GM VIAL ONE (21:25)
[2021-03-03] MEDS ORDERED: Dextrose 50% Abboject 50 ML SYRINGE SLOW IVP PRN (02:28)
[2021-03-03] MEDS ORDERED: hydrALAZINE 20 MG/ML VIAL SLOW IVP PRN (02:28)
[2021-03-03] MEDS ORDERED: Ondansetron ODT 4 MG TAB PO PRN (02:28)
[2021-03-03] MEDS ORDERED: Vancomycin HCl 1 GM in Sodium Chloride 0.9% 250 ML 250 ML IVPB SCH (02:28)
[2021-03-03] MEDS ORDERED: Acetaminophen 500 MG TAB PO PRN (02:28)
[2021-03-03] MEDS ORDERED: HumaLOG 300 UNITS/3 ML VIAL SC PRN ×2 (02:28)
[2021-03-03] MEDS ORDERED: Ondansetron PF 4 MG/2 ML Vial IVP PRN (02:28)
[2021-03-03] MEDS ORDERED: Dextrose 5% in Water 1,000 ML IV PRN (02:28)
[2021-03-03 03:19] VITALS: BMI 29.0
[2021-03-03] MEDS ORDERED: VANCOMYCIN 2 GRAM/400 ML BAG 2 GM in Premix Bag 1 BAG IVPB SCH (04:00)
[2021-03-03] MEDS: Cefepime 2 GM in Sodium Chloride 0.9% 100 ML IVPB SCH ×2 (04:02→15:31)
[2021-03-03 06:00] LABS: #Basophils 0.1 thou/uL (0.0-0.2); #Eosinphils 0.3 thou/uL (0.0-0.7); #Lymphocytes 1.7 thou/uL (1.20-3.40); #Monocytes 0.6 thou/uL (0.11-0.59); #Neutrophils 5.9 thou/uL (1.40-6.50); %Basophils 0.6 % (0.0-1.0); %Eosinophils 3.4 % (0.0-10.0); %Lymphocytes 20.3 % (21.0-51.0); %Neutrophils 68.8 % (42.0-75.0); Hemoglobin 14.6 g/dL (14.0-18.0); Mean Corpuscular HGB CONC 32.9 g/dL (32.0-36.0); Mean Corpuscular Hemoglobin 31.7 pg (27.0-31.0); Mean Corpuscular Volume 96.3 fL (78.0-98.0); Mean Platelet Volume 7.8 fL (7.4-10.4); Platelet Count 204 thou/uL (130-400); RBC Distribution Width 11.8 % (11.5-14.5); Red Blood Cell (RBC) Count 4.61 mill/uL (4.70-6.10); White Blood Cell (WBC) Count 8.5 thou/uL (4.8-10.8)
[2021-03-03 06:20] LABS: Anion Gap 16 mmol/L (10-20); BUN (Urea Nitrogen) 20 mg/dL (8.4-25.7); CRP (Inflammatory) 0.51 mg/dL (= or < 0.5); Calc. Creatinine Clearance 75 mL/min (70-130); Calcium 9.4 mg/dL (7.8-10.44); Carbon Dioxide 23 mmol/L (23-31); Chloride 102 mmol/L (98-107); Glucose 150 mg/dL (83-110); Potassium 3.9 mmol/L (3.5-5.1); Sodium 137 mmol/L (136-145)
[2021-03-03] MEDS: Rivaroxaban 15 MG TAB PO SCH ×2 (07:31→19:37)
[2021-03-03] MEDS: Dronedarone HCl 400 MG TAB PO SCH ×2 (07:31→18:00)
[2021-03-03] MEDS: Carvedilol 25 MG TAB PO SCH ×2 (08:46→18:00)
[2021-03-03] MEDS: Aspirin Chewable 81 MG TAB PO SCH (08:46)
[2021-03-03] MEDS: Famotidine 20 MG TAB PO SCH ×2 (08:47→19:36)
[2021-03-03] MEDS: metFORMIN 500 MG TAB PO SCH ×2 (08:47→18:00)
[2021-03-03] MEDS: Finasteride 5 MG TAB PO SCH (08:47)
[2021-03-03] MEDS: Glimepiride 1 MG TAB PO SCH (08:48)
[2021-03-03] MEDS: VANCOMYCIN 1.25 GM/250 ML BAG 1.25 GM in Premix Bag 1 BAG IVPB SCH (16:29)
[2021-03-03] MEDS: Tamsulosin HCl 0.4 MG CAP PO SCH (19:37)
[2021-03-03] MEDS: Montelukast Sodium 10 mg Tablet PO SCH (19:37)
[2021-03-04] MEDS: VANCOMYCIN 1.25 GM/250 ML BAG 1.25 GM in Premix Bag 1 BAG IVPB SCH ×2 (04:37→16:45)
[2021-03-04] MEDS: Cefepime 2 GM in Sodium Chloride 0.9% 100 ML IVPB SCH ×2 (04:37→15:40)
[2021-03-04] MEDS: Dronedarone HCl 400 MG TAB PO SCH ×2 (08:49→17:40)
[2021-03-04] MEDS: Carvedilol 25 MG TAB PO SCH ×2 (08:49→17:39)
[2021-03-04] MEDS: Glimepiride 1 MG TAB PO SCH (08:49)
[2021-03-04] MEDS: metFORMIN 500 MG TAB PO SCH ×2 (08:49→17:40)
[2021-03-04] MEDS: Famotidine 20 MG TAB PO SCH ×2 (08:50→21:12)
[2021-03-04] MEDS: Aspirin Chewable 81 MG TAB PO SCH (08:50)
[2021-03-04] MEDS: Finasteride 5 MG TAB PO SCH (08:51)
[2021-03-04] MEDS: Rivaroxaban 15 MG TAB PO SCH ×2 (08:52→21:13)
[2021-03-04] MEDS: Hydrocortisone 1% Cream 30 GM TUBE TOP PRN (20:27)
[2021-03-04] MEDS: Montelukast Sodium 10 mg Tablet PO SCH (21:12)
[2021-03-04] MEDS: Tamsulosin HCl 0.4 MG CAP PO SCH (21:25)
[2021-03-04] MEDS: diphenhydrAMINE 25 MG CAP PO PRN (21:26)
[2021-03-04] MEDS ORDERED: Piperacillin/Tazobactam 3.375 GM in Sodium Chloride 0.9% 100 ML IVPB SCH ×2 (22:00→23:59)
[2021-03-04] MEDS ORDERED: Famotidine/PF 20 mg/2ml Vial SLOW IVP SCH (23:00)
[2021-03-05] MEDS: Piperacillin/Tazobactam 3.375 GM in Sodium Chloride 0.9% 100 ML IVPB SCH ×2 (02:04→09:39)
[2021-03-05] MEDS: diphenhydrAMINE 25 MG CAP PO PRN ×3 (02:04→22:55)
[2021-03-05] MEDS: VANCOMYCIN 1.25 GM/250 ML BAG 1.25 GM in Premix Bag 1 BAG IVPB SCH (06:10)
[2021-03-05] MEDS: Dronedarone HCl 400 MG TAB PO SCH ×2 (09:27→16:20)
[2021-03-05] MEDS: Glimepiride 1 MG TAB PO SCH (09:31)
[2021-03-05] MEDS: Carvedilol 25 MG TAB PO SCH ×2 (09:31→16:20)
[2021-03-05] MEDS: Hydrochlorothiazide 25 MG TAB PO SCH (09:32)
[2021-03-05] MEDS: Famotidine 20 MG TAB PO SCH ×2 (09:32→23:19)
[2021-03-05] MEDS: Rivaroxaban 15 MG TAB PO SCH (09:32)
[2021-03-05] MEDS: Finasteride 5 MG TAB PO SCH (09:32)
[2021-03-05] MEDS: Aspirin Chewable 81 MG TAB PO SCH (09:32)
[2021-03-05] MEDS: Lisinopril 5 MG TAB PO SCH ×2 (09:32→19:00)
[2021-03-05] MEDS: metFORMIN 500 MG TAB PO SCH ×2 (09:32→16:21)
[2021-03-05] MEDS ORDERED: cefTRIAXone\\ROCEPHIN 1 GM in Sodium Chloride 0.9% 100 ML IVPB SCH (15:00)
[2021-03-05] MEDS ORDERED: VANCOMYCIN 1.25 GM/250 ML BAG 1.25 GM in Premix Bag 1 BAG IVPB SCH (18:00)
[2021-03-05] MEDS: Montelukast Sodium 10 mg Tablet PO SCH (23:19)
[2021-03-05] MEDS: Tamsulosin HCl 0.4 MG CAP PO SCH (23:19)
[2021-03-06] MEDS: Hydrocortisone 1% Cream 30 GM TUBE TOP PRN (01:16)
[2021-03-06 09:14] LABS: Anion Gap 16 mmol/L (10-20); BUN (Urea Nitrogen) 12 mg/dL (8.4-25.7); Calc. Creatinine Clearance 76 mL/min (70-130); Calcium 8.7 mg/dL (7.8-10.44); Carbon Dioxide 23 mmol/L (23-31); Chloride 102 mmol/L (98-107); Glucose 196 mg/dL (83-110); Potassium 3.6 mmol/L (3.5-5.1); Sodium 137 mmol/L (136-145)
[2021-03-06] MEDS: Lisinopril 5 MG TAB PO SCH (10:24)
[2021-03-06] MEDS: Glimepiride 1 MG TAB PO SCH (10:24)
[2021-03-06] MEDS: Famotidine 20 MG TAB PO SCH (10:24)
[2021-03-06] MEDS: Aspirin Chewable 81 MG TAB PO SCH (10:24)
[2021-03-06] MEDS: Dronedarone HCl 400 MG TAB PO SCH (10:24)
[2021-03-06] MEDS: Hydrochlorothiazide 25 MG TAB PO SCH (10:24)
[2021-03-06] MEDS: metFORMIN 500 MG TAB PO SCH (10:24)
[2021-03-06] MEDS: Carvedilol 25 MG TAB PO SCH (10:24)
[2021-03-06] MEDS: Finasteride 5 MG TAB PO SCH (10:25)
[2021-03-06] MEDS: diphenhydrAMINE 25 MG CAP PO PRN (10:51)
[2021-03-06 11:36] VITALS: BP 133/86; TEMP 97.8
[2021-03-15] MEDS ORDERED: Rivaroxaban 10 MG TAB PO SCH (09:00)
== END 2021-03-06 14:56 | disposition home or self-care (01) | DRG 603 ==
LOC: ERS 16:38 → ERHOLD 20:59 → SJJU 03-03 01:58 → OBSVTOIN 03-03 02:35
PROVIDERS: ADMIT Family Medicine; ATTEND Internal Medicine
DX: L03.116 Cellulitis of left lower limb (principal); I48.20 Chronic atrial fibrillation, unspecified; N18.30 Chronic kidney disease, stage 3 unspecified; I12.9 Hypertensive chronic kidney disease with stage 1 through stage 4 chronic kidney disease, or unspecified chronic kidney disease; I25.10 Atherosclerotic heart disease of native coronary artery without angina pectoris; E78.5 Hyperlipidemia, unspecified; E11.22 Type 2 diabetes mellitus with diabetic chronic kidney disease; E11.65 Type 2 diabetes mellitus with hyperglycemia; L27.0 Generalized skin eruption due to drugs and medicaments taken internally; T36.0X5A Adverse effect of penicillins, initial encounter; Z79.01 Long term (current) use of anticoagulants; Z79.899 Other long term (current) drug therapy; Z79.84 Long term (current) use of oral hypoglycemic drugs; Z95.1 Presence of aortocoronary bypass graft; Z95.5 Presence of coronary angioplasty implant and graft; Z82.49 Family history of ischemic heart disease and other diseases of the circulatory system; Z87.891 Personal history of nicotine dependence
CPT/HCPCS: 36415; 36416; 80048; 80053; 85025; 86140; 87070; 87205; 96365; 96366; G0378; J0692; J0696; J1815; J2543; J3370; J3490; Q0163; S0028

== ENCOUNTER 2022-07-13 10:18 | Outpatient (CLI) | payer MEDICARE, OTHER | END 2022-07-13 10:19 | disposition home or self-care (01) | LOC: TBSIIMAG 10:18 | PROVIDERS: ATTEND Surgery | DX: M51.36 Other intervertebral disc degeneration, lumbar region (principal); M47.816 Spondylosis without myelopathy or radiculopathy, lumbar region; M47.817 Spondylosis without myelopathy or radiculopathy, lumbosacral region; M47.815 Spondylosis without myelopathy or radiculopathy, thoracolumbar region | CPT/HCPCS: 72120; 72148 ==

== ENCOUNTER 2022-09-15 19:29 | Emergency (ER) | payer MEDICARE, OTHER ==
[2022-09-15 20:58] LABS: #Eosinphils 0.1 thou/uL (0.0-0.7); #Lymphocytes 1.2 thou/uL (1.20-3.40); #Monocytes 0.6 thou/uL (0.11-0.59); #Neutrophils 9.2 thou/uL (1.40-6.50); %Basophils 0.3 % (0.0-1.0); %Eosinophils 0.9 % (0.0-10.0); %Monocytes 5.3 % (0.0-10.0); %Neutrophils 82.5 % (42.0-75.0); Hemoglobin 14.7 g/dL (14.0-18.0); Mean Corpuscular HGB CONC 33.4 g/dL (32.0-36.0); Mean Corpuscular Hemoglobin 31.6 pg (27.0-31.0); Mean Corpuscular Volume 94.6 fl (78.0-98.0); Mean Platelet Volume 7.2 fL (7.4-10.4); Platelet Count 184 10x3/uL (130-400); RBC Distribution Width 11.8 % (11.5-14.5); Red Blood Cell (RBC) Count 4.64 mill/uL (4.70-6.10); White Blood Cell (WBC) Count 11.2 10x3/uL (4.8-10.8)
[2022-09-15 21:19] LABS: ALT (SGPT) 13 U/L (8-55); AST (SGOT) 15 U/L (5-34); Albumin 4.3 g/dL (3.4-4.8); Alkaline Phosphatase 60 U/L (40-110); Anion Gap 14 mmol/L (10-20); BUN (Urea Nitrogen) 20 mg/dL (8.4-25.7); Bilirubin, Total 0.5 mg/dL (0.2-1.2); Calc. Creatinine Clearance 0 mL/min (70-130); Calcium 9.6 mg/dL (7.8-10.44); Carbon Dioxide 28 mmol/L (23-31); Chloride 99 mmol/L (98-107); Estimated GFR 41; Globulin 3.2 g/dL (2.4-3.5); Glucose 184 mg/dL (83-110); Potassium 3.3 mmol/L (3.5-5.1); Protein, Total 7.5 g/dL (5.8-8.1); Sodium 138 mmol/L (136-145)
== END 2022-09-15 22:10 | disposition home or self-care (01) ==
LOC: ERS 19:29
DX: E11.649 Type 2 diabetes mellitus with hypoglycemia without coma (principal); I10 Essential (primary) hypertension; I48.91 Unspecified atrial fibrillation; I25.10 Atherosclerotic heart disease of native coronary artery without angina pectoris; E78.5 Hyperlipidemia, unspecified; Z79.899 Other long term (current) drug therapy
CPT/HCPCS: 36415; 36416; 80053; 85025; 99285

== ENCOUNTER 2022-12-16 09:31 | Outpatient (CLI) | payer MEDICARE, OTHER ==
[2022-12-16 11:34] LABS: Mean Corpuscular HGB CONC 33.2 g/dL (32.0-36.0); Mean Corpuscular Hemoglobin 31.1 pg (27.0-33.0); Mean Corpuscular Volume 93.5 fl (81.2-95.1); Mean Platelet Volume 10.2 fl (7.4-10.4); Platelet Count 176 10x3/uL (150-450); RBC Distribution Width 12.6 % (11.5-14.5); Red Blood Cell (RBC) Count 4.18 10x6/uL (4.32-5.72); White Blood Cell (WBC) Count 5.9 10x3/uL (3.5-10.5)
[2022-12-16 11:49] LABS: INR-International Normal Ratio 0.9; PTT 23.4 sec (22.0-33.0); Prothrombin Time 9.9 sec (9.5-12.1)
[2022-12-16 11:51] LABS: Anion Gap 14 mmol/L (10-20); BUN (Urea Nitrogen) 27 mg/dL (8.4-25.7); Calc. Creatinine Clearance 0 mL/min (70-130); Calcium 9.6 mg/dL (7.8-10.44); Carbon Dioxide 30 mmol/L (23-31); Chloride 100 mmol/L (98-107); Estimated GFR 45; Glucose 205 mg/dL (83-110); Potassium 4.7 mmol/L (3.5-5.1); Sodium 139 mmol/L (136-145)
== END 2022-12-16 09:32 | disposition home or self-care (01) ==
LOC: LABBT 09:31
PROVIDERS: ATTEND Surgery
DX: Z01.818 Encounter for other preprocedural examination (principal); M48.062 Spinal stenosis, lumbar region with neurogenic claudication; M54.16 Radiculopathy, lumbar region
CPT/HCPCS: 80048; 85027; 85610; 85730; 93005; 93010

== ENCOUNTER 2022-12-20 11:40 | Observation (INO) | payer MEDICARE, OTHER ==
[2022-12-20] MEDS ORDERED: Vancomycin 1 GM VIAL ONE (13:38)
[2022-12-20] MEDS ORDERED: Thrombin 5000 UNITS/5 ML VIAL ONE (13:38)
[2022-12-20] MEDS ORDERED: CEFAZOLIN 2 GM VIAL ONE (13:42)
[2022-12-20] MEDS ORDERED: Sodium Chloride 0.9% 100 ML ONE (13:42)
[2022-12-20] MEDS ORDERED: fentaNYL PF 100 MCG/2 ML SYRINGE ONE (13:43)
[2022-12-20] MEDS ORDERED: Dexamethasone 20 MG/5 ML VIAL ONE (14:02)
[2022-12-20] MEDS ORDERED: ePHEDrine Sulfate 50 MG/10 ML VIAL ONE (14:02)
[2022-12-20] MEDS ORDERED: Glycopyrrolate 0.2 MG/ML 5 ML SYRINGE ONE (14:02)
[2022-12-20] MEDS ORDERED: PROPOFOL 200 MG/20 ML VIAL ONE (14:02)
[2022-12-20] MEDS ORDERED: Rocuronium Bromide 10 MG/ML (10ML VIAL) ONE (14:02)
[2022-12-20] MEDS ORDERED: Ondansetron PF 4 MG/2 ML Vial ONE (14:02)
[2022-12-20] MEDS ORDERED: PHENYLEPHRINE-NS 100 MCG/ML 10 ML SYRINGE ONE (14:02)
[2022-12-20] MEDS ORDERED: NEOSTIGMINE 3 MG/3 ML SYR 3 MG/3 ML SYRINGE ONE (14:02)
[2022-12-20] MEDS ORDERED: Lidocaine 1% PF 5 ML VIAL ONE (14:02)
[2022-12-20] MEDS ORDERED: traMADol HCl 50 MG TAB PO PRN (15:55)
[2022-12-20] MEDS ORDERED: HYDROcodone/Acetaminophen 7.5/325 mg Tablet PO PRN (15:55)
[2022-12-20] MEDS ORDERED: Acetaminophen 325 MG TAB PO PRN (15:55)
[2022-12-20] MEDS ORDERED: Ondansetron PF 4 MG/2 ML Vial IVP PRN (15:55)
[2022-12-20] MEDS ORDERED: Morphine 2 MG/ML VIAL SLOW IVP PRN ×2 (15:55→16:47)
[2022-12-20] MEDS ORDERED: Acetaminophen/Codeine 30-300mg Tablet PO PRN (15:55)
[2022-12-20] MEDS ORDERED: Fentanyl 250 MCG/5 ML VIAL ONE (15:56)
[2022-12-20] MEDS ORDERED: hydrALAZINE 20 MG/ML VIAL SLOW IVP PRN (15:58)
[2022-12-20] MEDS ORDERED: tiZANidine HCl 4 MG TAB PO PRN (15:58)
[2022-12-20] MEDS ORDERED: Promethazine HCl 12.5 MG in Sodium Chloride 0.9% 50 ML IVPB PRN (15:58)
[2022-12-20] MEDS ORDERED: CEFAZOLIN 2 GM in Sodium Chloride 0.9% 100 ML IVPB SCH (16:00)
[2022-12-20] MEDS ORDERED: Ondansetron HCl/PF 4 MG/2 ML Vial IVP PRN (16:45)
[2022-12-20] MEDS ORDERED: Promethazine HCl 25 MG/ML VIAL IM/IV PRN (16:45)
[2022-12-20] MEDS ORDERED: HYDROcodone/Acetaminophen 5/325 mg Tablet PO PRN ×2 (16:45→16:46)
[2022-12-20] MEDS ORDERED: fentaNYL 50 mcg/mL 1 mL Vial ONE (18:56)
[2022-12-20 19:17] LABS: ALT (SGPT) 19 U/L (8-55); AST (SGOT) 16 U/L (5-34); Albumin 4.1 g/dL (3.4-4.8); Alkaline Phosphatase 63 U/L (40-110); Anion Gap 13 mmol/L (10-20); BUN (Urea Nitrogen) 19 mg/dL (8.4-25.7); Bilirubin, Total 0.4 mg/dL (0.2-1.2); Calc. Creatinine Clearance 70 mL/min (70-130); Calcium 9.2 mg/dL (7.8-10.44); Carbon Dioxide 27 mmol/L (23-31); Chloride 101 mmol/L (98-107); Estimated GFR 50; Globulin 3.1 g/dL (2.4-3.5); Glucose 213 mg/dL (83-110); Potassium 4.2 mmol/L (3.5-5.1); Protein, Total 7.2 g/dL (5.8-8.1); Sodium 137 mmol/L (136-145)
[2022-12-20] MEDS: CEFAZOLIN 2 GM in Sodium Chloride 0.9% 100 ML IVPB SCH (21:54)
[2022-12-20] MEDS: Sodium Chloride 0.9% 1,000 ML IV SCH (21:56)
[2022-12-20 23:02] VITALS: BMI 30.7
[2022-12-21 05:12] LABS: #Lymphocytes 0.6 thou/uL (1.20-3.40); #Monocytes 0.6 thou/uL (0.11-0.59); #Neutrophils 10.3 thou/uL (1.40-6.50); %Eosinophils 0.1 % (0.0-10.0); %Lymphocytes 5.2 % (21.0-51.0); %Neutrophils 89.7 % (42.0-75.0); Hemoglobin 13.9 g/dL (14.0-18.0); Mean Corpuscular HGB CONC 34.8 g/dL (32.0-36.0); Mean Corpuscular Hemoglobin 32.4 pg (27.0-31.0); Mean Platelet Volume 7.7 fL (7.4-10.4); Platelet Count 171 10x3/uL (130-400); RBC Distribution Width 11.8 % (11.5-14.5); White Blood Cell (WBC) Count 11.5 10x3/uL (4.8-10.8)
[2022-12-21 05:31] LABS: Anion Gap 15 mmol/L (10-20); BUN (Urea Nitrogen) 23 mg/dL (8.4-25.7); Calc. Creatinine Clearance 63 mL/min (70-130); Calcium 8.7 mg/dL (7.8-10.44); Carbon Dioxide 21 mmol/L (23-31); Chloride 101 mmol/L (98-107); Estimated GFR 44; Glucose 337 mg/dL (83-110); Potassium 4.2 mmol/L (3.5-5.1); Sodium 133 mmol/L (136-145)
[2022-12-21] MEDS: CEFAZOLIN 2 GM in Sodium Chloride 0.9% 100 ML IVPB SCH (06:01)
[2022-12-21] MEDS: Sodium Chloride 0.9% 1,000 ML IV SCH (06:06)
[2022-12-21] MEDS ORDERED: Hydrochlorothiazide 25 MG TAB PO SCH (08:00)
[2022-12-21] MEDS ORDERED: Glimepiride 1 MG TAB PO SCH (08:00)
[2022-12-21] MEDS ORDERED: Carvedilol 25 MG TAB PO SCH (08:00)
[2022-12-21] MEDS ORDERED: Cholecalciferol 1,000 UNITS (25 MCG) TAB PO SCH (08:00)
[2022-12-21] MEDS ORDERED: Cyanocobalamin (Vitamin B-12) 1,000 MCG TAB PO SCH (08:00)
[2022-12-21] MEDS ORDERED: Insulin Regular 300 UNITS/3 ML VIAL SC PRN ×2 (08:33→09:00)
[2022-12-21] MEDS ORDERED: Dextrose 5% in Water 1,000 ML IV PRN (09:00)
[2022-12-21] MEDS ORDERED: Docusate 100 MG CAP PO SCH (09:00)
[2022-12-21] MEDS ORDERED: Lisinopril 5 MG TAB PO SCH (09:00)
[2022-12-21] MEDS ORDERED: Dextrose 50% Abboject 50 ML SYRINGE IVP PRN (09:00)
[2022-12-21 11:13] VITALS: BP 147/86; TEMP 98.4
[2022-12-21] MEDS ORDERED: HYDROcodone/Acetaminophen 5/325 mg Tablet PO PRN (14:16)
[2022-12-21] MEDS ORDERED: Tamsulosin HCl 0.4 MG CAP PO SCH (17:00)
[2022-12-21] MEDS ORDERED: Montelukast Sodium 10 mg Tablet PO SCH (21:00)
[2022-12-21] MEDS ORDERED: Finasteride 5 MG TAB PO SCH (21:00)
== END 2022-12-21 15:45 | disposition home or self-care (01) ==
LOC: SDC 11:40 → 2SW 15:55
PROVIDERS: ADMIT Surgery; ATTEND Surgery
PROC: 01NB0ZZ Release Lumbar Nerve, Open Approach (ICD-10-PCS; principal; 2022-12-20)
DX: M48.062 Spinal stenosis, lumbar region with neurogenic claudication (principal); M54.16 Radiculopathy, lumbar region; I47.20 Ventricular tachycardia, unspecified; I47.1 Supraventricular tachycardia; I11.9 Hypertensive heart disease without heart failure; I08.3 Combined rheumatic disorders of mitral, aortic and tricuspid valves; E78.5 Hyperlipidemia, unspecified; I25.10 Atherosclerotic heart disease of native coronary artery without angina pectoris; E11.9 Type 2 diabetes mellitus without complications; N40.0 Benign prostatic hyperplasia without lower urinary tract symptoms; J44.9 Chronic obstructive pulmonary disease, unspecified; G47.30 Sleep apnea, unspecified; Z87.891 Personal history of nicotine dependence; Z79.4 Long term (current) use of insulin; Z79.620 Long term (current) use of immunosuppressive biologic; Z79.82 Long term (current) use of aspirin; Z79.84 Long term (current) use of oral hypoglycemic drugs; Z79.899 Other long term (current) drug therapy; Z95.5 Presence of coronary angioplasty implant and graft
CPT/HCPCS: 36415; 80048; 80053; 84484; 85025; 93306; J1100; J2405; J2704; J3010; J3370; J3490; J7050

== ENCOUNTER 2023-06-09 09:23 | Outpatient (CLI) | payer MEDICARE, OTHER | END 2023-06-09 09:24 | disposition home or self-care (01) | LOC: MRI 09:23 | PROVIDERS: ATTEND Surgery | DX: M54.2 Cervicalgia (principal); M47.812 Spondylosis without myelopathy or radiculopathy, cervical region | CPT/HCPCS: 72050; 72141 ==

== ENCOUNTER 2023-09-23 04:56 | Emergency (ER) | payer MEDICARE, OTHER ==
[2023-09-23 05:25] LABS: #Monocytes 0.6 thou/uL (0.11-0.59); #Neutrophils 7.5 thou/uL (1.40-6.50); %Basophils 0.3 % (0.0-1.0); %Lymphocytes 5.8 % (21.0-51.0); %Monocytes 7.1 % (0.0-10.0); %Neutrophils 86.6 % (42.0-75.0); Hematocrit 40.2 % (42.0-52.0); Hemoglobin 13.6 g/dL (14.0-18.0); Mean Corpuscular HGB CONC 33.8 g/dL (32.0-36.0); Mean Corpuscular Hemoglobin 31.5 pg (27.0-31.0); Mean Corpuscular Volume 93.1 fl (78.0-98.0); Mean Platelet Volume 9.5 fL (7.4-10.4); Platelet Count 156 10x3/uL (130-400); RBC Distribution Width 12.9 % (11.5-14.5); Red Blood Cell (RBC) Count 4.32 mill/uL (4.70-6.10); White Blood Cell (WBC) Count 8.7 10x3/uL (4.8-10.8)
[2023-09-23 05:49] LABS: ALT (SGPT) 20 U/L (8-55); AST (SGOT) 16 U/L (5-34); Albumin 4.2 g/dL (3.4-4.8); Alkaline Phosphatase 67 U/L (40-110); Anion Gap 16 mmol/L (10-20); BUN (Urea Nitrogen) 21 mg/dL (8.4-25.7); Bilirubin, Total 0.6 mg/dL (0.2-1.2); Calc. Creatinine Clearance 0 mL/min (70-130); Calcium 8.9 mg/dL (7.8-10.44); Carbon Dioxide 23 mmol/L (23-31); Chloride 100 mmol/L (98-107); Estimated GFR 45; Globulin 3.3 g/dL (2.4-3.5); Glucose 275 mg/dL (83-110); Potassium 3.8 mmol/L (3.5-5.1); Protein, Total 7.5 g/dL (5.8-8.1); Sodium 135 mmol/L (136-145)
[2023-09-23] MEDS ORDERED: Acetaminophen 500 MG TAB ONE (05:49)
[2023-09-23] MEDS ORDERED: Ipratropium/Albuterol 3 ML NEB ONE (05:51)
[2023-09-23 06:17] LABS: SARS-CoV-2 NAA Rapid Test DETECTED (NotDetected)
== END 2023-09-23 07:08 | disposition home or self-care (01) ==
LOC: ERS 04:56
DX: U07.1 COVID-19 (principal); I10 Essential (primary) hypertension; I25.10 Atherosclerotic heart disease of native coronary artery without angina pectoris; I48.91 Unspecified atrial fibrillation; E11.9 Type 2 diabetes mellitus without complications
CPT/HCPCS: 0240U; 71045; 80053; 83605; 83880; 84484; 85025; 87040; 93005; 94640; 36415; J7620

== ENCOUNTER 2024-02-27 05:59 | Day surgery (SDC) | payer MEDICARE, OTHER ==
[2024-02-22 09:10] VITALS: BMI 29.8
[2024-02-27] MEDS ORDERED: Lidocaine 1% PF 5 ML VIAL ONE (08:25)
[2024-02-27] MEDS ORDERED: PROPOFOL 200 MG/20 ML VIAL ONE (08:25)
[2024-02-27] MEDS ORDERED: PHENYLEPHRINE-NS 100 MCG/ML 10 ML SYRINGE ONE (08:50)
== END 2024-02-27 10:16 | disposition home or self-care (01) ==
LOC: SDC 05:59
PROVIDERS: ATTEND Internal Medicine Cardiovascular Disease
PROC: 5A2204Z Restoration of Cardiac Rhythm, Single (ICD-10-PCS; principal; 2024-02-27)
PROC: B246ZZ4 Ultrasonography of Right and Left Heart, Transesophageal (ICD-10-PCS; 2024-02-27)
DX: I47.19 Other supraventricular tachycardia (principal); I10 Essential (primary) hypertension; I25.10 Atherosclerotic heart disease of native coronary artery without angina pectoris; E11.9 Type 2 diabetes mellitus without complications; G47.30 Sleep apnea, unspecified; I48.0 Paroxysmal atrial fibrillation; Z86.16 Personal history of COVID-19; J44.9 Chronic obstructive pulmonary disease, unspecified; Z98.890 Other specified postprocedural states; Z87.891 Personal history of nicotine dependence; Z88.8 Allergy status to other drugs, medicaments and biological substances; Z88.1 Allergy status to other antibiotic agents; Z79.82 Long term (current) use of aspirin; Z79.4 Long term (current) use of insulin; Z79.84 Long term (current) use of oral hypoglycemic drugs; Z79.899 Other long term (current) drug therapy
CPT/HCPCS: 92960; 93005; 93312; J2704; 93010

== ENCOUNTER 2024-03-16 10:57 | Emergency (ER) | payer MEDICARE, OTHER ==
[2024-03-16 11:40] LABS: #Basophils 0.06 10x3/uL (0.0-0.2); %Basophils 0.9 % (0.0-1.0); %Eosinophils 1.8 % (0.0-10.0); %Lymphocytes 20.3 % (21.0-51.0); %Monocytes 5.4 % (0.0-10.0); Hematocrit 41.8 % (42.0-52.0); Hemoglobin 14.1 g/dL (14.0-18.0); Mean Corpuscular HGB CONC 33.7 g/dL (32.0-36.0); Mean Corpuscular Hemoglobin 31.3 pg (27.0-31.0); Mean Corpuscular Volume 92.9 fL (78.0-98.0); Mean Platelet Volume 9.4 fL (7.4-10.4); Platelet Count 169 10x3/uL (130-400); RBC Distribution Width 13.5 % (11.5-14.5)
[2024-03-16 11:57] LABS: ALT (SGPT) 18 U/L (8-55); AST (SGOT) 16 U/L (5-34); Albumin 3.6 g/dL (3.4-4.8); Alkaline Phosphatase 73 U/L (40-110); Anion Gap 13 mmol/L (10-20); BUN (Urea Nitrogen) 21 mg/dL (8.4-25.7); Bilirubin, Total 0.6 mg/dL (0.2-1.2); Calc. Creatinine Clearance 0 mL/min (70-130); Calcium 9.7 mg/dL (7.8-10.44); Carbon Dioxide 26 mmol/L (23-31); Chloride 100 mmol/L (98-107); Estimated GFR 51; Globulin 3.5 g/dL (2.4-3.5); Glucose 179 mg/dL (83-110); Protein, Total 7.1 g/dL (5.8-8.1); Sodium 135 mmol/L (136-145)
[2024-03-16 12:01] LABS: Troponin I Less than 0.010 ng/mL (< 0.028)
[2024-03-16] MEDS ORDERED: Lisinopril 5 MG TAB ONE (13:40)
== END 2024-03-16 14:48 | disposition home or self-care (01) ==
LOC: ERS 10:57
DX: I49.9 Cardiac arrhythmia, unspecified (principal); I10 Essential (primary) hypertension; I25.10 Atherosclerotic heart disease of native coronary artery without angina pectoris; E11.9 Type 2 diabetes mellitus without complications; Z95.1 Presence of aortocoronary bypass graft
CPT/HCPCS: 71045; 80053; 83735; 84484; 85025; 93005